=== PATIENT | female | born 1965 | race African-American/Black ===

== ENCOUNTER 2016-07-16 15:28 | Emergency (ER) | payer OTHER ==
[~2016-07-16] VITALS: Ht 162.6 cm; Wt 89.8 kg
[2016-07-16] MEDS ORDERED: SENOKOT-S1 TA1 PO (17:26)
[2016-07-16] MEDS ORDERED: OXAYDO5 MG PO (17:35)
[2016-07-16 19:50] VITALS: BP 124/78
== END 2016-07-16 19:50 | disposition home or self-care (01) ==
LOC: ER 15:28
DX: G89.18 Other acute postprocedural pain (principal); M54.5 Low back pain; Z88.0 Allergy status to penicillin

== ENCOUNTER 2016-07-25 23:35 | Emergency (ER) | payer OTHER ==
[~2016-07-25] VITALS: Ht 170.2 cm; Wt 83.9 kg
[~2016-07-25 23:35] MED LIST: OXAYDO5 MG PO; SENOKOT-S1 TA1 PO
[2016-07-26 00:12] LABS: URINE BILIRUBIN NEGATIVE (Negative); URINE BLOOD 1+ (Negative); URINE COLOR YELLOW; URINE GLUCOSE-RANDOM* NEGATIVE (Negative); URINE KETONES NEGATIVE (Negative); URINE LEUKOCYTES-REFLEX 1+ (Negative); URINE PROTEIN (DIPSTICK) 1+ (Negative)
[2016-07-26 00:21] LABS: SQUAMOUS 4-10 Moderate /LPF (0-3)
[2016-07-26 00:22] LABS: CASTS None Seen /LPF (None Seen); CRYSTALS None Seen /LPF (None Seen); URINE RBC 3-10 Few /HPF (0-2); URINE WBC-REFLEX >25 Many /HPF (0-5)
[2016-07-26 00:32] LABS: ABSOLUTE NEUTROPHILS 2.4 thou/uL (1.4-8.2); BASOPHILS 1.2 % (0.0-2.0); EOSINOPHILS 3.2 % (0.0-3.0); HEMATOCRIT 33.7 % (37.0-47.0); HEMOGLOBIN 11.4 gm/dL (12.0-15.0); LYMPHOCYTES 38.8 % (24.0-44.0); MCH 29.8 pg (26.0-34.0); MCHC 33.7 g/dL (28.0-37.0); MCV 88.4 fL (80.0-100.0); MONOCYTES 8.6 % (1.0-8.0); PLATELET COUNT 213 thou/uL (150-400); POLYS 48.2 % (36.0-66.0); RBC 3.81 mil/uL (4.20-5.00); RDW 14.3 % (10.5-14.5); WBC 4.9 thou/uL (4.0-11.0)
[2016-07-26 00:33] LABS: MANUAL DIFF NO
[2016-07-26 00:46] LABS: CALCIUM 8.3 mg/dL (8.5-10.1); CREATININE 0.8 mg/dL (0.6-1.0); POTASSIUM 3.7 mmol/L (3.5-5.1)
[2016-07-26] MEDS ORDERED: MACROBID 100 M100 M1 PO (01:12)
[2016-07-26 01:36] VITALS: BP 153/99
== END 2016-07-26 01:43 | disposition home or self-care (01) ==
LOC: ER 23:35
PROVIDERS: Emergency Medicine
DX: M54.9 Dorsalgia, unspecified (principal); N39.0 Urinary tract infection, site not specified; Z88.0 Allergy status to penicillin

== ENCOUNTER 2016-09-01 18:03 | Emergency (ER) | payer OTHER ==
[~2016-09-01] VITALS: Ht 162.6 cm; Wt 81.7 kg
[~2016-09-01 18:03] MED LIST changes: +MACROBID 100 M100 M1 PO
[2016-09-01] MEDS ORDERED: PERCOCET 10-321 EACH PO (18:26)
[2016-09-01 18:39] VITALS: BP 143/67
== END 2016-09-01 18:55 | disposition home or self-care (01) ==
LOC: ER 18:03
DX: G89.29 Other chronic pain (principal); M54.5 Low back pain; Z88.0 Allergy status to penicillin